=== PATIENT | male | born 1990 | race Two or more races ===

== ENCOUNTER 2019-02-22 06:50 | Emergency (ER) | payer SELFPAY ==
--- NOTE | 2019-02-22 07:10 | EDM.PDOC ---
ED HPI GENERAL MEDICAL PROBLEM - General Chief Complaint: Respiratory Problem Stated Complaint: ASTHMA ATTACK Time Seen by Provider: 02/22/19 07:04 Source of Information: Reports: Patient - History of Present Illness INITIAL COMMENTS - FREE TEXT/NARRATIVE: The patient is a 29-year-old asthmatic who presents to the ER because he has been coughing and short of breath. The patient states that he has been working outside at night (and it has been approximately -40 and he feels like his asthma is flaring up. He denies any fevers or chills, but he is coughing a lot and hurts his chest when he coughs. He feels like he has been getting worse. His inhalers help a little bit and only intermittently. He denies any significant nasal congestion, just mainly the cough and shortness of breath that is getting more frequent - Related Data Allergies Allergy/AdvReac Type Severity Reaction Status Date / Time No Known Allergies Allergy Verified 02/22/19 06:55 Home Meds: Home Meds Salmeterol Xinafoate [Serevent Diskus] 1 puff INH BID 11/06/17 [History] Albuterol Sulfate [Albuterol Sulfate Hfa] 18 gm IH Q4HR PRN #1 [id number] [Rx] predniSONE [Prednisone] 80 mg PO 5XDAY #20 tablet 02/22/19 [Rx] Past Medical History Respiratory History: Reports: Asthma Psychiatric History: Reports: None - Infectious Disease History Infectious Disease History: Reports: Chicken Pox Social & Family History - Family History Family Medical History: Noncontributory - Tobacco Use Smoking Status *Q: Current Every Day Smoker Years of Tobacco use: 3 Packs/Tins Daily: 1 - Caffeine Use Caffeine Use: Reports: Coffee, Energy Drinks, Soda - Recreational Drug Use Recreational Drug Use: No ED ROS GENERAL - Review of Systems Review Of Systems: See Below (Positive for cough, positive for shortness of breath, positive for wheezing, negative for fevers, negative for chills, further pertinent positives and pertinent negatives are per HPI) ED EXAM, GENERAL - Physical Exam Exam: See Below General Appearance: Alert, No Apparent Distress, Other (Nontoxic, intermittent harsh cough, looks like he does not feel well) Eye Exam: Bilateral Eye: EOMI, PERRL Ears: Normal External Exam Nose: No: Nasal Flaring Throat/Mouth: No Airway Compromise, Other (Raspy voice). No: Normal Voice Head: Atraumatic, Normocephalic Neck: Supple, Full Range of Motion Respiratory/Chest: No Respiratory Distress, No Accessory Muscle Use, Other ( Harsh raspy cough, good aeration throughout with very mild diffuse expiratory wheezes but no tachypnea). No: Respiratory Distress Cardiovascular: Regular Rate, Rhythm, No Edema Back Exam: Full Range of Motion Extremities: Normal Range of Motion Neurological: Alert, Oriented, Normal Cognition, Normal Gait Psychiatric: Normal Affect, Normal Mood Skin Exam: Warm, Dry Course - Vital Signs Text/Narrative:: Clinically the patient appears to have the same viral bronchitis that is prevalent in the population at this time, with an exacerbation of his asthma. He is not in any severe respiratory distress but he does have some slight wheezes and I asked him if he requires a respiratory treatment at this time and he said no. However, I do feel that the patient would benefit greatly from steroid therapy and he is in agreement. Furthermore, the patient [place] sal[place]he believes that it is a rescue inhaler and it is not. I explained the difference between a long-acting medication and true rescue inhalers so he will also get a prescription for albuterol. The patient also does not have a primary care physician so one will be provided to him. I will also give him a couple of days off work because it is extremely cold outside and I believe he would benefit greatly Last Recorded V/S: Last Vital Signs Temp 35.9 C 02/22/19 06:56 Pulse 88 02/22/19 06:56 Resp 20 02/22/19 06:56 BP 121/72 02/22/19 06:56 Pulse Ox 96 02/22/19 06:56 Departure - Departure Time of Disposition: 07:22 Disposition: Home, Self-Care 01 Clinical Impression: Viral bronchitis, Asthma exacerbation - Discharge Information Instructions: Acute Bronchitis, Adult, [id number], Asthma Attack Sepsis Event Note - Evaluation Sepsis Screening Result: No Definite Risk - Focused Exam Vital Signs: Vital Signs Temp Pulse Resp BP Pulse Ox 02/22/19 06:56 35.9 C 88 20 121/72 96 Date Exam was Performed: 02/22/19 Time Exam was Performed: 07:04
[2019-02-22] MEDS ORDERED: predniSONE 20 MG Tab PO ONE (07:15)
== END 2019-02-22 07:42 | disposition home or self-care (01) ==
LOC: MW.ED 06:50
DX: J20.8 Acute bronchitis due to other specified organisms (principal); J45.901 Unspecified asthma with (acute) exacerbation; F17.210 Nicotine dependence, cigarettes, uncomplicated
CPT/HCPCS: 99284; A9270; 99283